=== PATIENT | female | born 1970 | race Caucasian/White ===

== ENCOUNTER 2018-12-02 09:22 | Emergency (ER) | payer BC ==
[2018-12-02 09:30] VITALS: RESP 18; TEMP 98
[2018-12-02] MEDS ORDERED: KETOROLAC 30 MG/ML 1 ML VIAL IM STA (09:41)
--- NOTE | 2018-12-02 09:46 | ED ---
General Adult HPI - General Chief complaint: Extremity Injury, Upper Stated complaint: fall/shoulder & arm pain Time Seen by Provider: 12/02/18 09:31 Source: patient, RN notes reviewed, old records reviewed Mode of arrival: ambulatory Limitations: no limitations - History of Present Illness Initial comments: 48-year-old female presents with right upper extremity pain. Patient had fall one week ago while painting in her bathroom. She fell striking her right upper extremity. She has significant pain at that time. She's had pain over the past one week with decreased range of motion. She was seen by her primary care physician, prescribed Motrin and muscle relaxer and had received x-ray of the shoulder at that time which according to the patient was negative for fracture. She's had ongoing pain and did call her primary care physician recommended she present to the emergency department. Patient denies any complaints other than right arm pain just proximal to the elbow. She is able to move at the wrist and elbow with minimal pain. - Related Data Home Medications Medication Instructions Recorded Confirmed Aspirin EC [Ecotrin Low Dose] 81 mg PO DAILY 12/02/18 12/02/18 Losartan Potassium 50 mg PO DAILY 12/02/18 12/02/18 Zanaflex (Unknown Dose) 1 tab PO HS 12/02/18 12/02/18 Allergies Allergy/AdvReac Type Severity Reaction Status Date / Time Sulfa (Sulfonamide Allergy Swelling Verified 12/02/18 09:44 Antibiotics) Review of Systems ROS Statement: Those systems with pertinent positive or pertinent negative responses have been documented in the HPI. ROS Other: All systems not noted in ROS Statement are negative. Past Medical History Past Medical History: Hypertension History of Any Multi-Drug Resistant Organisms: None Reported Past Surgical History: Cholecystectomy, Hysterectomy Past Psychological History: No Psychological Hx Reported Smoking Status: Current every day smoker Past Alcohol Use History: Rare Past Drug Use History: None Reported General Exam Limitations: no limitations General appearance: alert, in no apparent distress Head exam: Present: atraumatic, normocephalic Eye exam: Present: normal appearance, PERRL Neck exam: Present: normal inspection, full ROM. Absent: tenderness, meningismus Respiratory exam: Present: normal lung sounds bilaterally. Absent: respiratory distress, wheezes Cardiovascular Exam: Present: regular rate, normal rhythm GI/Abdominal exam: Present: soft. Absent: distended, tenderness, guarding Right Shoulder Exam: Present: tenderness. Absent: full ROM, swelling, abrasion Upper Arm exam: Present: tenderness, swelling. Absent: full ROM, ecchymosis Elbow exam: Absent: full ROM, swelling, deformity, erythema Forearm Wrist exam: Present: normal inspection, full ROM. Absent: tenderness, swelling Hand Wrist exam: Present: normal inspection, full ROM. Absent: tenderness, swelling Vascular: Present: radial pulse (2+) Back exam: Present: normal inspection, full ROM Neurological exam: Present: alert, oriented X3, CN II-XII intact. Absent: motor sensory deficit Psychiatric exam: Present: normal affect, normal mood Skin exam: Present: warm, dry, intact. Absent: cyanosis, diaphoretic Course Vital Signs 12/02/18 09:26 Temperature 98.0 F Pulse Rate 82 Respiratory 18 Rate Blood Pressure 156/94 O2 Sat by Pulse 99 Oximetry Medical Decision Making - Medical Decision Making 48-year-old female with severe right upper extremity pain status post fall. Exam patient has severe pain with flexion at the elbow. Decreased range of motion at the shoulder secondary to pain. She is neurovascularly intact. She does have severe pain over the right before meals joint. Shoulder x-ray shows concern for before meals arthropathy, no fracture dislocation, x-ray humerus negative for fracture, x-ray the elbow negative for fracture or dislocation. Patient given Toradol emergency department, she does have Motrin and muscle relaxer at home. She is placed in a sling. I do have concern for partial bicep injury or tear. Will give orthopedic follow-up. Disposition Clinical Impression: Acromioclavicular (AC) joint injury, Biceps muscle strain Disposition: HOME SELF-CARE Condition: Good Instructions (If sedation given, give patient instructions): Acromioclavicular Separation (ED), Shoulder Sprain (ED) Is patient prescribed a controlled substance at d/c from ED?: No Referrals: Farhad Rodriguez MD [Primary Care Provider] - 1-2 days Paulie Anderson DO [Medical Doctor] - 1-2 days Time of Disposition: 11:37
--- NOTE | 2018-12-02 11:00 | XR ---
EXAMINATION TYPE: XR elbow complete RT DATE OF EXAM: 12/02/2018 COMPARISON: NONE HISTORY: Pain FINDINGS: Three views of the elbow demonstrate no pathologic joint effusion. The osseous structures are intact . There is no acute fracture or dislocation. IMPRESSION: 1. No acute fracture or dislocation. If symptoms persist follow-up study in 7 to 10 days could be ob tained.
--- NOTE | 2018-12-02 11:00 | XR ---
EXAMINATION TYPE: XR shoulder complete RT DATE OF EXAM: 12/02/2018 COMPARISON: NONE HISTORY: Pain TECHNIQUE: Three views are submitted. FINDINGS: The osseous structures are intact. There is no acute fracture or dislocation. Arthropathy of the AC joint. IMPRESSION: 1. AC joint arthropathy.
--- NOTE | 2018-12-02 11:01 | XR ---
EXAMINATION TYPE: XR humerus RT DATE OF EXAM: 12/02/2018 COMPARISON: NONE HISTORY: Pain TECHNIQUE: 2 views submitted. FINDINGS: The osseous structures are intact and the joint spaces are preserved. IMPRESSION: 1. No acute fracture or dislocation.
[2018-12-02 11:59] VITALS: BP 143/80; PULSE 62
== END 2018-12-02 11:52 | disposition home or self-care (01) ==
LOC: EC 09:22
DX: S49.91XA Unspecified injury of right shoulder and upper arm, initial encounter (principal); S46.211A Strain of muscle, fascia and tendon of other parts of biceps, right arm, initial encounter; I10 Essential (primary) hypertension; F17.200 Nicotine dependence, unspecified, uncomplicated; Z79.82 Long term (current) use of aspirin; Z79.899 Other long term (current) drug therapy; Z88.2 Allergy status to sulfonamides; W19.XXXA Unspecified fall, initial encounter; W22.8XXA Striking against or struck by other objects, initial encounter; Y92.002 Bathroom of unspecified non-institutional (private) residence as the place of occurrence of the external cause
CPT/HCPCS: 73030; 73060; 73080; 99284; 96372; J1885

== ENCOUNTER → 2021-09-26 | Outpatient (CLI) | payer BC ==
--- NOTE | 2021-09-30 12:07 | MM ---
Reason for exam: screening (asymptomatic). Baseline mammogram. History: Patient is postmenopausal. Family history of breast cancer in maternal aunt at age 55. Physical Findings: Nurse did not find any significant physical abnormalities on exam. MG 3D Screening Mammo W/Cad Bilateral CC and MLO view(s) were taken. There are scattered fibroglandular densities. There is no discrete abnormality. ASSESSMENT: Negative, BI-RAD 1 RECOMMENDATION: Routine screening mammogram of both breasts in 1 year.
== END | disposition home or self-care (01) ==
LOC: RADMAMWWP 10:10
PROVIDERS: ATTEND Internal Medicine
DX: Z12.31 Encounter for screening mammogram for malignant neoplasm of breast (principal); Z80.3 Family history of malignant neoplasm of breast; Z78.0 Asymptomatic menopausal state
CPT/HCPCS: 77063; 77067

== ENCOUNTER → 2022-03-24 | Outpatient (CLI) | payer BC ==
[2022-03-24 13:50] LABS: ALT 26 U/L (8-44); AST 20 U/L (13-35); Chol/HDL Ratio 3.63 Ratio; LDL Cholesterol,Calculated 88.1 mg/dL (0.0-131.0)
== END | disposition home or self-care (01) ==
LOC: LABWHC1 07:52
PROVIDERS: ATTEND Internal Medicine Interventional Cardiology
DX: E78.2 Mixed hyperlipidemia (principal)
CPT/HCPCS: 36415; 80061; 83036; 84450; 84460

== ENCOUNTER → 2023-06-09 | Outpatient (CLI) | payer BC ==
--- NOTE | 2023-06-09 22:32 | MM ---
Reason for Exam: Screening (asymptomatic). Last mammogram was performed 1 year(s) and 9 month(s) ago. Patient History: Menarche at age 14. First Full-Term at age 22. Hysterectomy at age 37. Postmenopausal. Patient has history of breast feeding. Maternal aunt had breast cancer, age 55. Risk Values: Chel 5 year model risk: 0.9%. NCI Lifetime model risk: 7.8%. Prior Study Comparison: 09/26/2021 Bilateral Screening Mammogram, [facility]. Tissue Density: There are scattered fibroglandular densities. Findings: Analyzed By CAD. There is no suspicious group of microcalcifications or new suspicious mass in either breast. Overall Assessment: Negative, BI-RAD 1 Management: Screening Mammogram of both breasts in 1 year. . Patient should continue monthly self-breast exams. A clinical breast exam by your physician is recommended on an annual basis. This exam should not preclude additional follow-up of suspicious palpable abnormalities. Note on Chel scores and lifetime risk: 1. A Chel score greater than 3% is considered moderate risk. If this is the case, consider specialist referral to assess eligibility for a risk reducing agent. 2. If overall lifetime risk for the development of breast cancer is 20% or higher, the patient may qualify for future screening with alternating mammogram and breast MRI. Electronically signed and approved by: Landon Chowdhury M.D. Radiologist
== END | disposition home or self-care (01) ==
LOC: RADMAMWWP 06:59
PROVIDERS: ATTEND Internal Medicine Geriatric Medicine
DX: Z12.31 Encounter for screening mammogram for malignant neoplasm of breast (principal); Z78.0 Asymptomatic menopausal state; Z80.3 Family history of malignant neoplasm of breast
CPT/HCPCS: 77063; 77067

== ENCOUNTER → 2024-05-13 | Outpatient (CLI) | payer OTHER | END | disposition home or self-care (01) | LOC: LABPRL 12:00 | PROVIDERS: ATTEND Family Medicine | DX: I10 Essential (primary) hypertension (principal); E78.5 Hyperlipidemia, unspecified; E66.9 Obesity, unspecified | CPT/HCPCS: 80053; 80061; 82043; 82570; 83036; 85027 ==

== ENCOUNTER 2024-06-02 19:33 | Emergency (ER) | payer OTHER ==
--- NOTE | 2024-06-02 19:52 | ED ---
Abdominal Pain HPI - General Source: patient, RN notes reviewed <Lisette Coffey - Last Filed: 06/02/24 19:51> - General Source: patient, RN notes reviewed Mode of arrival: ambulatory Limitations: no limitations - History of Present Illness MD Complaint: abdominal pain <Kenia Romero - Last Filed: 06/03/24 02:36> - General Chief Complaint: Abdominal Pain Stated Complaint: GI Time Seen by Provider: 06/02/24 19:51 - History of Present Illness Initial Comments: Quick [id number] female presents emergency department chief complaint of constipation. Patient states that over the last week she has had intermittent constipation and has had small bowel movements. States that she took multiple stool softeners this morning addition to did a at home enema with minimal relief. She has been feeling nauseous with both episodes of vomiting and chills. History of cholecystectomy. (Lisette Coffey) This is a 54-year-old female who presents to the emergency department for concerns of abdominal pain and constipation. States that she typically has 2 bowel movements each day, however she has not had a normal bowel movement in about 5 days at this point. She tried multiple [id number] treatments, including Dulcolax and enemas. She has still been unable to produce what she wou ld consider a normal bowel movement, but was able to produce small pieces of stool followed by a couple of bouts of liquid stool. In the last day she started to develop increasing pain in her abdomen as well as nausea and vomiting. States that she is no longer passing gas concerned about a bowel o bstruction. Denies any history of bowel obstructions. (Kenia Romero) - Related Data Home Medications Medication Instructions Recorded Confirmed Aspirin EC [Ecotrin Low Dose] 81 mg PO DAILY 12/02/18 12/02/18 Losartan Potassium 50 mg PO DAILY 12/02/18 12/02/18 Zanaflex (Unknown Dose) 1 tab PO HS 12/02/18 12/02/18 Previous Rx's Medication Instructions Recorded Celecoxib 200 mg PO BID PRN #30 cap 06/03/24 Metoclopramide [Reglan] 10 mg PO Q6H PRN #30 tab 06/03/24 Ondansetron Odt [Zofran Odt] 4 mg PO Q8HR PRN #30 tab 06/03/24 Allergies Allergy/AdvReac Type Severity Reaction Status Date / Time Sulfa (Sulfonamide Allergy Swelling Verified 06/02/24 19:58 Antibiotics) Review of Systems ROS Other: All systems not noted in ROS Statement are negative. <Lisette Coffey - Last Filed: 06/02/24 19:51> ROS Other: All systems not noted in ROS Statement are negative. <Kenia Romero - Last Filed: 06/03/24 02:36> ROS Statement: Those systems with pertinent positive or pertinent negative responses have been documented in the HPI. Past Medical History Past Medical History: Hypertension History of Any Multi-Drug Resistant Organisms: None Reported Past Surgical History: Cholecystectomy, Hysterectomy Past Psychological History: No Psychological Hx Reported Past Alcohol Use History: Rare Past Drug Use History: None Reported <Lisette Coffey - Last Filed: 06/02/24 19:51> General Exam <Lisette Coffey - Last Filed: 06/02/24 19:51> Limitations: no limitations General appearance: alert, in no apparent distress Head exam: Present: atraumatic, normocephalic, normal inspection Respiratory exam: Present: normal lung sounds bilaterally. Absent: respiratory distress, wheezes, rales, rhonchi, stridor Cardiovascular Exam: Present: regular rate, normal rhythm, normal heart sounds. Absent: systolic murmur, diastolic murmur, rubs, gallop, clicks GI/Abdominal exam: Present: soft, tenderness (Epigastric), normal bowel sounds. Absent: distended Neurological exam: Present: alert, oriented X3, CN II-XII intact Psychiatric exam: Present: normal affect, normal mood Skin exam: Present: warm, dry, intact, normal color. Absent: rash <Kenia Romero - Last Filed: 06/03/24 02:36> - General Exam Comments Initial Comments: Visual Physical Exam Vital signs reviewed General: Well-appearing, nontoxic, no acute distress. Head: Normocephalic, atraumatic Eyes: PERRLA, EOMI ENT: Airway patent Chest: Nonlabored breathing Skin: No visual rash, normal skin tone Neuro: Alert and oriented 3 Musculoskeletal: No gross abnormalities (Stieler,Lisette) Course Vital Signs 06/02/24 06/03/24 19:56 02:25 Temperature 98.0 F 98.5 F Pulse Rate 91 55 L Respiratory 18 17 Rate Blood Pressure 151/81 112/54 O2 Sat by Pulse 98 97 Oximetry Medical Decision Making <Lisette Coffey - Last Filed: 06/02/24 19:51> - Lab Data Result diagrams: 06/02/24 20:50 06/02/24 20:50 - Radiology Data Radiology results: report reviewed, image reviewed <Kenia Romero - Last Filed: 06/03/24 02:36> - Medical Decision Making I completed the quick note portion of this chart signed Lisette Coffey PA-C (Lisette Coffey) This is a 54 year old female who presents to the emergency department for abdominal pain and constipation. Was pt. sent in by a medical professional or institution? @ -No Did you speak to anyone other than the patient for history? @ -No Did you review nursing and triage notes? @ -Yes, and I agree, it is accurate with regards to the patient's symptoms. Were old charts reviewed? @ -No Differential Diagnosis? @ -Differential Abdominal Pain Women: Appendicitis, Cholecystitis, diverticulosis, ischemic bowel, pancreatitis, hepatitis, UTI, gastroenteritis, AAA, incarcerated hernia, bowel obstruction, constipation, inflammatory bowel, hepatitis, peptic ulcer disease, splenic infarction, perforated viscus, vulvitis, ovarian torsion, PID, kidney stone, placenta abruption, this is not meant to be an all-inclusive list EKG interpreted by me (3pts min.)? @ -Not obtained X-rays interpreted by me (1pt min.)? @ -KUB x-ray obtained. My interpretation identifies air fluid levels. CT interpreted by me (1pt min.)? @ -CT scan of the abdomen and pelvis obtained. My interpretation identifies fluid-filled small bowel loops. U/S interpreted by me (1pt. min.)? @ -Not obtained What testing was considered but not performed? (CT, X-rays, U/S, labs)? Why? @ -None What meds were considered but not given? Why? @ -None Did you discuss the management of the patient with other professionals? @ -No Did you reconcile home meds? @ -No Was smoking cessation discussed for >3mins.? @ -I discussed smoking cessation for greater than 3 minutes. The risk of smoking were discussed with the patient including but not limited to risks of cancer, stroke, coronary artery disease and COPD. Also discussed with patient were multiple methods of quitting smoking. Lastly we discussed the financial cost of smoking. Was critical care preformed (if so, how long)? @ -No Were there social determinants of health that impacted care today? How? (Homelessness, low income, unemployed, alcoholism, drug addiction, transportation, low edu. Level, literacy, decrease access to med. care, prison, rehab)? @ -No Was there de-escalation of care discussed even if they declined? (Discuss DNR or withdrawal of care, Hospice)? @ -No What co-morbidities impacted this encounter? (DM, HTN, Smoking, COPD, CAD, Cancer, CVA, Hep., AIDS, mental health diagnosis, sleep apnea, morbid obesity)? @ -Smoking Was patient admitted / discharged? @ -Discharged. Lab work unremarkable. Urinalysis negative for signs of infection. We initially proceeded with a KUB x-ray demonstrating scattered air- fluid levels within several loops of colon suggestive of gastroenteritis. However, patient continued to be very uncomfortable with pain and nausea/vomiting. We subsequently proceeded with a CT scan of the abdomen and pelvis. This demonstrated fluid in the colon that may represent a diarrheal state as well as fluid and gas-filled small bowel loops suggestive of enteritis. Findings reviewed with the patient. Symptoms were well-controlled in the emergency department. Prescription for Celebrex, Reglan, and Zofran provided for further management. We discussed bowel rest in the meantime as well. Patient discharged home in stable condition. Case discussed with ED attending Dr. Vallejo. Return precautions reviewed in depth, the patient is instructed to return to the emergency department with any new, worsening, or concerning symptoms. Patient verbalized understanding. Undiagnosed new problem with uncertain prognosis? @ -None Drug Therapy requiring intensive monitoring for toxicity (Heparin, Nitro, Insulin, Cardizem)? @ -None Were any procedures done? @ -None Diagnosis/symptom? @ -Enteritis Acute, or Chronic, or Acute on Chronic? @ -Acute Uncomplicated (without systemic symptoms) or Complicated (systemic symptoms)? @ -Uncomplicated Side effects of treatment? @ -None Exacerbation, Progression, or Severe Exacerbation] @ -Not applicable Poses a threat to life or bodily function? @ -No (Kenia Romero) - Lab Data Lab Results 06/02/24 06/02/24 06/02/24 Range/Units 20:50 20:50 20:50 WBC 7.2 (3.8-10.6) k/uL RBC 4.37 (3.80-5.40) m/uL Hgb 13.3 (11.4-16.0) gm/dL Hct 39.8 (34.0-46.0) % MCV 91.1 (80.0-100.0) fL MCH 30.4 (25.0-35.0) pg MCHC 33.4 (31.0-37.0) g/dL RDW 13.2 (11.5-15.5) % Plt Count 305 (150-450) k/uL MPV 6.9 Neutrophils % 62 % Lymphocytes % 29 % Monocytes % 5 % Eosinophils % 2 % Basophils % 1 % Neutrophils # 4.4 (1.3-7.7) k/uL Lymphocytes # 2.1 (1.0-4.8) k/uL Monocytes # 0.3 (0-1.0) k/uL Eosinophils # 0.1 (0-0.7) k/uL Basophils # 0.0 (0-0.2) k/uL Sodium 137 (137-145) mmol/L Potassium 3.6 (3.5-5.1) mmol/L Chloride 105 (98-107) mmol/L Carbon Dioxide 27 (22-30) mmol/L Anion Gap 5 mmol/L BUN 11 (7-17) mg/dL Creatinine 0.63 (0.52-1.04) mg/dL Est GFR (CKD-EPI)AfAm >90 (>60 ml/min/1.73 sqM) Est GFR (CKD-EPI)NonAf >90 (>60 ml/min/1.73 sqM) Glucose 132 H (74-99) mg/dL Plasma Lactic Acid Kun 1.2 (0.7-2.0) mmol/L Calcium 8.8 (8.4-10.2) mg/dL Phosphorus 2.4 L (2.5-4.5) mg/dL Magnesium 2.2 (1.6-2.3) mg/dL Total Bilirubin 0.4 (0.2-1.3) mg/dL AST 27 (14-36) U/L ALT 23 (4-34) U/L Alkaline Phosphatase 83 (38-126) U/L Total Protein 6.2 L (6.3-8.2) g/dL Albumin 3.9 (3.5-5.0) g/dL Amylase 38 (30-110) U/L Lipase 67 (23-300) U/L Disposition <SavirojasLisette - Last Filed: 06/02/24 19:51> Is patient prescribed a controlled substance at d/c from ED?: No Time of Disposition: 02:10 <Kenia Romero - Last Filed: 06/03/24 02:36> Clinical Impression: Enteritis Disposition: HOME SELF-CARE Instructions (If sedation given, give patient instructions): Enteritis (ED) Additional Instructions: Return to the emergency department with any new, worsening, or concerning symptoms. Take the Celebrex twice daily as needed for pain relief. You may take this with Tylenol. The Zofran can be taken up to every 8 hours and the Reglan up to every 6 hours as needed for nausea and vomiting. Follow up with your primary care provider in 1-2 days. Prescriptions: Celecoxib 200 mg PO BID PRN #30 cap PRN Reason: Pain Metoclopramide [Reglan] 10 mg PO Q6H PRN #30 tab PRN Reason: Nausea And Vomiting Ondansetron Odt [Zofran Odt] 4 mg PO Q8HR PRN #30 tab PRN Reason: Nausea And Vomiting Referrals: Radha Park MD [Primary Care Provider] - 1-2 days
[2024-06-02] MEDS: ONDANSETRON 4 MG/2 ML VIAL IVP STA (21:00)
[2024-06-02] MEDS: KETOROLAC 15 MG/ML 1 ML VIAL IVP STA (21:01)
[2024-06-02 21:08] LABS: Basophils % (A) 1 %; Eosinophils # (A) 0.1 k/uL (0-0.7); Eosinophils % (A) 2 %; HCT 39.8 % (34.0-46.0); HGB 13.3 gm/dL (11.4-16.0); Lymphocytes # (A) 2.1 k/uL (1.0-4.8); Lymphocytes % (A) 29 %; MCH 30.4 pg (25.0-35.0); MCHC 33.4 g/dL (31.0-37.0); MCV 91.1 fL (80.0-100.0); Mean Platelet Volume 6.9; Monocytes # (A) 0.3 k/uL (0-1.0); Monocytes % (A) 5 %; Neutrophils # (A) 4.4 k/uL (1.3-7.7); Neutrophils % (A) 62 %; Platelet Count 305 k/uL (150-450); RBC 4.37 m/uL (3.80-5.40); RDW 13.2 % (11.5-15.5); WBC 7.2 k/uL (3.8-10.6)
[2024-06-02 21:18] LABS: ALT 23 U/L (4-34); AST 27 U/L (14-36); African American GFR (CKD) >90 (>60 ml/min/1.73 sqM); Albumin 3.9 g/dL (3.5-5.0); Alkaline Phosphatase 83 U/L (38-126); Amylase 38 U/L (30-110); Anion Gap 5 mmol/L; Blood Urea Nitrogen 11 mg/dL (7-17); Calcium 8.8 mg/dL (8.4-10.2); Carbon Dioxide 27 mmol/L (22-30); Chloride 105 mmol/L (98-107); Glucose 132 mg/dL (74-99); Lipase 67 U/L (23-300); Magnesium 2.2 mg/dL (1.6-2.3); Non-African American GFR(CKD) >90 (>60 ml/min/1.73 sqM); Phosphorus 2.4 mg/dL (2.5-4.5); Potassium 3.6 mmol/L (3.5-5.1); Sodium 137 mmol/L (137-145); Total Bilirubin 0.4 mg/dL (0.2-1.3); Total Protein 6.2 g/dL (6.3-8.2)
--- NOTE | 2024-06-02 21:52 | XR ---
EXAMINATION TYPE: XR KUB DATE OF EXAM: 06/02/2024 COMPARISON: None INDICATION: Constipation TECHNIQUE: Single view abdomen upright view FINDINGS: Small amount of air is through the colon. Scattered air-fluid levels are present. No differential air -fluid levels are present to suggest obstruction. No mass effect is evident. No significant fecal ret ention. Psoas margins are normal. No organomegaly is present. No suspicious calcifications evident. Cholecystectomy clips are present. IMPRESSION: 1. Scattered air-fluid levels within some loops of colon. Consider gastroenteritis.
[2024-06-02] MEDS: METOCLOPRAMIDE 5 MG/ML 2 ML VIAL IVP STA (22:49)
--- NOTE | 2024-06-03 01:55 | CT ---
EXAM: CT Abdomen and Pelvis With Intravenous Contrast CLINICAL HISTORY: ITS.REASON CT Reason: Abdominal pain, acute, nonlocalized TECHNIQUE: Axial computed tomography images of the abdomen and pelvis with intravenous contrast. CTDI is 29.27 mGy and DLP is 1326.7 mGy-cm. This CT exam was performed using one or more of the following dose reduction techniques: automated exposure control, adjustment of the mA and/or kV according to patient size, and/or use of iterative reconstruction technique. COMPARISON: None FINDINGS: Lung bases: Unremarkable. No mass. No consolidation. ABDOMEN: Liver: Hepatic steatosis. Hepatomegaly. Gallbladder and bile ducts: Prior cholecystectomy. No ductal dilation. Pancreas: Unremarkable. No mass. No ductal dilation. Spleen: Small splenule spine. Adrenals: Unremarkable. No mass. Kidneys and ureters: Unremarkable. No hydronephrosis or obstructing ureteral stone. Stomach and bowel: Fluid in the colon may represent diarrheal state. Fluid and gas-filled small bowel loops may represent enteritis. Evaluation of the stomach is limited by underdistention. PELVIS: Appendix: Normal appendix. Bladder: Unremarkable. No mass. Reproductive: Prior hysterectomy. ABDOMEN and PELVIS: Intraperitoneal space: Unremarkable. No free air. No significant fluid collection. Bones/joints: Bilateral L5 pars defects. Grade 2/3 anterolisthesis of L5 on S1. Degenerative changes, most prominently at L5-S1. Soft tissues: Small fat-containing umbilical hernia. Vasculature: Phleboliths in the pelvis. No abdominal aortic aneurysm. Lymph nodes: Mildly prominent mesenteric and retroperitoneal lymph nodes may be reactive. IMPRESSION: 1. Fluid in the colon may represent diarrheal state. Fluid and gas- filled small bowel loops may represent enteritis. 2. Hepatic steatosis. Hepatomegaly.
[2024-06-03] MEDS: METOCLOPRAMIDE 10 MG TAB PO STA (02:19)
[2024-06-03] MEDS: ONDANSETRON 4 MG ODT STARTER PACK 2 TAB BTL PO STA (02:19)
[2024-06-03 02:27] VITALS: BP 112/54; PULSE 55; RESP 17; TEMP 98.5
== END 2024-06-03 02:27 | disposition home or self-care (01) ==
LOC: EC 19:33
CPT/HCPCS: 36415; 74018; 74177; 80053; 82150; 83605; 83690; 83735; 84100; 85025; 96374; 96375; 99284; 99406